=== PATIENT | male | born 1995 | race Caucasian/White ===

== ENCOUNTER 2018-06-27 23:51 | Emergency (ER) | payer SELFPAY ==
[2018-06-28 00:11] VITALS: BP 129/79; PULSE 80; RESP 16; TEMP 36.6; O2SAT 100; BMI 31.5
--- NOTE | 2018-06-28 00:50 | ED_ITS ---
HPI - Dental/Oral General Chief complaint: Dental/Oral Stated complaint: Fever, right ear pain, right tooth pain bottom Time Seen by Provider: 06/27/18 23:55 Source: patient and family Mode of arrival: ambulatory Limitations: no limitations History of Present Illness HPI Narrative: Patient presents to the emergency department with his father ines in the chief complaint of dental pain for least 1, and it is actually not hurting him right now. He denies any injury, facial swelling, fever or obvious drainage. He did have some ear pain for the past few days and his father brought him in for fear that he and ear infection MD Complaint: tooth pain 2 1. Onset (ago): month(s) Duration: intermittent Severity: mild Relieving factors: nothing Exacerbating factors: chewing, cold, heat, drinking fluids and swallowing Related Data Allergies Allergy/AdvReac Type Severity Reaction Status Date / Time INGREDIENT: NO KNOWN - NO Allergy Unknown Uncoded 02/17/18 13:08 KNOWN DRUG ALLERGY Review of Systems Review of Systems All systems reviewed & are unremarkable except as noted in HPI and below Constitutional Denies chills, Denies fever(s), Denies lethargy and Denies weakness Eyes Denies change in vision, Denies eye discharge, Denies irritation and Denies loss of vision ENT Ears, Nose, Mouth, and Throat: Denies change in voice, Reports dental pain, Denies neck pain and Denies sore throat Cardiovascular Denies chest pain, Denies irregular heart rhythm, Denies lightheadedness, Denies palpitations, Denies dyspnea, Denies dyspnea on exertion and Denies orthopnea Respiratory Denies cough, Denies dyspnea, Denies dyspnea on exertion and Denies wheezing Gastrointestinal Gastrointestinal: Denies abdominal pain, Denies change in bowel habits, Denies diarrhea, Denies nausea and Denies vomiting Genitourinary Denies hematuria, Denies flank pain, Denies urinary incontinence and Denies urinary urgency Musculoskeletal Denies neck pain Integumentary/Breasts Denies pruritus, Denies erythema, Denies rash and Denies wounds Neurologic Denies confusion, Denies loss of vision and Denies weakness Psychiatric Denies anxiety, Denies confusion, Denies depression, Denies homicidal ideation and Denies suicidal ideation Endocrine Denies palpitations Hematologic/Lymphatic Denies easy bruising Allergic/Immunologic Denies wheezing Exam Narrative Exam Narrative: GEN: AOx3 and in mild distress EYES: Pupils are equal, round, and reactive to light and accommodation. Extraoccular muscles are intact bilaterally. There is no subconjunctival hemorrhage or exudate. DENTAL: no abscess or facial swelling. Large hue in tooth 32. EARS: no effusion, loss of landmarks, bulging, or erythema CHEST: Lungs are clear to auscultation bilaterally and free of wheezes, rales, or rhonchi. Heart rate is regular rhythm, there are no murmurs, clicks, rubs, or gallops. There is no chest wall tenderness. ABD: Abdomen is soft and nontender. There is no guarding or rebound. Bowel sounds are normal in all 4 quadrants. There is no mass or organomegaly. EXT: Full painless ROM of all extremities with no loss of sensation or strength. SKIN: Warm, pink, and dry. No erythema or rash Initial Vital Signs Initial Vital Signs: Vital Signs Temperature 97.9 F 06/28/18 00:11 Pulse Rate 80 06/28/18 00:11 Respiratory Rate 16 06/28/18 00:11 Blood Pressure 129/79 H 06/28/18 00:11 Pulse Oximetry 100 06/28/18 00:11 Course Reevaluation(s) Reevaluation #1: Discussion with patient, I offered a dental block but patient refused Vital Signs - 8 hr 06/28/18 00:11 Temperature 97.9 F Pulse Rate 80 Respiratory Rate 16 Blood Pressure 129/79 H Pulse Oximetry 100 Discharge Plan Departure Patient Disposition: Home Clinical Impression: Dental caries Discharge Date/Time: 06/28/18 00:47 Interventions: ED Discharge Assessment Last Done: 06/28/18 00:47 Instructions: DI for Dental Pain Activity Restrictions/Additional Instructions: *You have been diagnosed with [ dental caries ] *What to do: *Follow up with a local dentist as soon as he can, call for an appointment. Let them know you were seen in the Emergency Department and that we ask that you be seen in follow up *Return to ER if you should have any new, worsening or concerning symptoms , such as [ facial swelling, fever over 101 F, other bothersome symptoms] Referrals: Robert Brandt DMD [Physician] - Galo Vines MD [Primary Care Provider] -
== END 2018-06-28 00:47 | disposition home or self-care (01) ==
PROVIDERS: Emergency Provider Emergency Medicine; Family Provider Family Medicine; PCP Family Medicine
DX: K02.9 Dental caries, unspecified (principal)
CPT/HCPCS: 99282